=== PATIENT | male | born 1950 | race Caucasian/White ===

== ENCOUNTER 2019-04-24 11:38 | Inpatient (IN) | payer OTHER, MEDICARE ==
[~2019-04-24] VITALS: Ht 185.4 cm; Wt 90.7 kg
[2019-04-24] MEDS ORDERED: STATIN PO (12:23)
[2019-04-24] MEDS ORDERED: Zocor20 MG PO (12:25)
[2019-04-24] MEDS ORDERED: DEXILANT30 MG PO (12:25)
[2019-04-24 12:50] LABS: Calcium, Ionized (POC) 1.18 mmol/L (1.10-1.46); Chloride (POC) 101 mmol/L (98-108); Creatinine (POC) 0.9 mg/dL (0.8-1.3); Glucose (ISTAT POC) 141 mg/dL (70-99); Potassium (POC) 3.6 mmol/L (3.5-5.5); Sodium (POC) 139 mmol/L (135-148); Total CO2 (POC) 26 mmol/L (21-32)
[2019-04-24] MEDS ORDERED: THERA1 EACH PO (14:43)
--- NOTE | 2019-04-25 04:17 | NUR ---
SHIFT SUMMARY: PT A&O X4 T/O SHIFT. VS WNL. PAIN BEING MANAGED WITH 1 NORCO PER EMAR. O2 SATS STABLE ON RA. PT REPORTS CHEST PAIN TO LEFT SIDE R/T RIB FX'S. PT ENC TO USE INCENTIVE SPIROMETER. INDEPENDENT IN ROOM. VOIDING WELL. PLAN FOR FOLLOW UP CXR THIS MORNING.
[2019-04-25 04:25] LABS: BASOPHILS ABSOLUTE AUTO 0.02 K/mm3 (0.00-0.23); BASOPHILS PERCENT AUTO 0 % (0-2); EOSINOPHILS ABSOLUTE AUTO 0.05 K/mm3 (0.00-0.68); EOSINOPHILS PERCENT AUTO 1 % (0-6); Hematocrit 41.5 % (37.0-53.0); Hemoglobin 13.6 g/dL (13.5-17.5); IMMATURE GRAN ABSOLUTE AUTO 0.02 K/mm3 (0.00-0.10); IMMATURE GRAN PERCENT AUTO 0 % (0-1); LYMPHOCYTES ABSOLUTE AUTO 1.32 K/mm3 (0.84-5.20); LYMPHOCYTES PERCENT AUTO 19 % (21-46); MONOCYTES ABSOLUTE AUTO 0.68 K/mm3 (0.16-1.47); MONOCYTES PERCENT AUTO 10 % (4-13); Mean Corpuscular HGB 31.9 pg (26.0-34.0); Mean Corpuscular HGB Conc 32.8 g/dL (31.5-36.5); Mean Corpuscular Volume 97 fL (80-100); Mean Platelet Volume 9.5 fL (9.1-12.4); NEUTROPHILS ABSOLUTE AUTO 4.71 K/mm3 (1.96-9.15); NEUTROPHILS PERCENT AUTO 69 % (41-73); Platelet Count 148 K/mm3 (150-400); RDW Standard Deviation 46.2 fL (35.1-46.3); Red Blood Cell Count 4.26 M/mm3 (4.30-5.90)
[2019-04-25 04:46] LABS: Alanine Aminotransfer (ALT/SGP 38 U/L (12-78); Albumin, Blood 3.4 g/dL (3.4-5.0); Albumin/Globulin Ratio 1.1 (0.8-1.8); Alk Phos 74 U/L (50-136); Anion Gap 5 mmol/L (6-16); Aspartate Aminotrans (AST/SGOT 28 U/L (12-37); Bilirubin, Total 0.8 mg/dL (0.1-1.0); Blood Urea Nitrogen 18 mg/dL (8-24); Bun/Creatinine Ratio 19.3 (12.0-20.0); CO2, Blood 29 mmol/L (21-32); Calcium, Blood 8.4 mg/dL (8.5-10.1); Chloride, Blood 106 mmol/L (98-108); Creatinine, Blood 0.94 mg/dL (0.60-1.20); Globulin, Blood 3.1 g/dL (2.2-4.0); Glomerular Filtration Rate >60 (60-); Glucose, Blood 108 mg/dL (70-99); Potassium, Blood 3.9 mmol/L (3.5-5.5); Sodium, Blood 140 mmol/L (136-145); Total Protein, Blood 6.5 g/dL (6.4-8.2)
--- NOTE | 2019-04-25 16:13 | NUR ---
PT TOLERATED SEDTION WELL. MAINTAINED OWN AIRWAY, RT AT BEDSIDE T/O. TIME OUT PERFORMED AT 1531. SEE PAPER CHART
--- NOTE | 2019-04-25 18:11 | NUR ---
SHIFT SUMMARY PT A&OX4, VSS, ON RA, S/P CHEST TUBE PLACED AT BEDSIDE TO WALL SUCTION. PAIN MANAGED W/ 5 MG NORCO. PRADEEP PO, DENIES N&V. VOIDING WELL, URINAL AT BEDSIDE. WILL REPORT TO ONCOMING NOC RN.
--- NOTE | 2019-04-26 04:44 | NUR ---
SHIFT SUMMARY: TARIQ IS HERE AFTER EXPERIENCING A FALL FROM A LADDER RESULTING IN MULTIPLE RIB AND LUMBAR FXs. HE IS A&OX4. CHEST TUBE PLACED YESTERDAY AT BEDSIDE IS PATENT, BUBBLING GENTLY. HE HAS MULTIPLE QUESTIONS ABOUT EVERY ASPECT OF HIS CARE. SCDs IN PLACE. OXYGEN MAINTAINING ON 2 L VIA NC. TOLERATING PO INTAKE WELL. HE IS USING THE URINAL WITHOUT ANY DIFFICULTIES. HE STATES THAT HIS PAIN IS WELL CONTROLLED WITH THE USE OF THE NORCO, TORADOL AND ICE PACK. HE IS ABLE TO MAKE HIS NEEDS KNOWN. HE IS LYING IN BED WITH HIS CALL LIGHT IN REACH.
--- NOTE | 2019-04-26 15:37 | NUR ---
SHIFT SUMMARY PT A&OX4, VSS, S/P CHEST TUBE INSERTION, DRAINING TO GRAVITY. PAIN MANAGED W/ 5 MG NORCO AND TORADOL. PRADEEP PO, DENIES N&V. VOIDING WELL. AMB SBA TO [facility] AND [facility]. WILL REPORT TO ONCOMING VICTORIA RN.
--- NOTE | 2019-04-27 05:08 | NUR ---
CHEST TUBE CLAMPED AT 0503. VSS. PT DENIES ANY SOB. LCTAB. PT ENCOURAGED TO NOTIFY STAFF IMMEDIATELY IF HE EXPERIENES ANY CHANGE IN CONDITION.
--- NOTE | 2019-04-27 05:43 | NUR ---
TARIQ DENIES ANY CHEST PAIN, SOB, OR DIFFICULTY BREATHING. HIS OXYGEN SATURATION IS MAINTAINING AT 95% ON ROOM AIR. HE DENIES ANY INCREASED PAIN.
--- NOTE | 2019-04-27 05:45 | NUR ---
SHIFT SUMMARY: TARIQ IS A&OX4. HE DENIES ANY CHEST PAIN, SOB OR DIFFICULTY BREATHING AFTER THE CHEST TUBE WAS CLAMPED AT 0503 THIS MORNING. PLAN IS FOR CHEST X-RAY AT APPROX 0800. HE IS TOLERATING PO INTAKE WELL, RESTED COMFORTABLY FOR MOST OF THE NIGHT. HE IS USING HIS URINAL WITHOUT DIFFICULTIES. INSERTION SITE C,D&I, NO CREPITUS NOTED. LCTAB. PAS IN PLACE. HE IS ABLE TO MAKE HIS NEEDS KNOWN. HE IS LYING IN BED WITH HIS CALL LIGHT IN REACH.
--- NOTE | 2019-04-27 10:10 | NUR ---
assumed care of pt, recvd report from previous TAYLA Villar. Pt a/o x 4, pleasant/cooperative, ambulating in hallway
--- NOTE | 2019-04-27 12:14 | NUR ---
PT TRANSPORTED TO IMAGING
--- NOTE | 2019-04-27 14:13 | NUR ---
provided pt with discharge instructions, peripheral IV removed WNL, pt refused to wait for written prescription for pain medications, states he will return to the surgery center tomorrow for prescription. This RN will notify Dr. Chamberlain. pt states his understanding of instructions, provided with printed material/education. Pt states he packed his incentive spirometer for home use per [place] instructions. pt refused offer of wheelchair escort to awaiting vehicle, preferred to carry his own belonging to vehicle. pt's will drive him home.
[2019-04-28] MEDS ORDERED: Norco 5-325 Ta1 EACH PO (13:21)
== END 2019-04-27 14:10 | disposition home or self-care (01) | DRG 200 ==
LOC: ER 11:38 → SURS 11:39
PROVIDERS: Physician Assistant; ADMIT Surgery
PROC: 0W9B00Z Drainage of Left Pleural Cavity with Drainage Device, Open Approach (ICD-10-PCS; principal; 2019-04-25)
DX: S27.0XXA Traumatic pneumothorax, initial encounter (principal); S22.42XA Multiple fractures of ribs, left side, initial encounter for closed fracture; S32.019A Unspecified fracture of first lumbar vertebra, initial encounter for closed fracture; S32.029A Unspecified fracture of second lumbar vertebra, initial encounter for closed fracture; S32.039A Unspecified fracture of third lumbar vertebra, initial encounter for closed fracture; S32.049A Unspecified fracture of fourth lumbar vertebra, initial encounter for closed fracture; W11.XXXA Fall on and from ladder, initial encounter; Y93.9 Activity, unspecified; Y92.9 Unspecified place or not applicable; Y99.9 Unspecified external cause status; K21.9 Gastro-esophageal reflux disease without esophagitis
CPT/HCPCS: 36415; 71045; 71046; 71260; 74177; 80047; 80053; 85014; 85025; 94762; 99285-25; A9270-GY; G0378; J1885; J2250; J2310; J3010; J7120; Q9967

== ENCOUNTER 2023-07-02 22:20 | Emergency (ER) | payer OTHER ==
[~2023-07-02] VITALS: Ht 185.4 cm; Wt 90.7 kg
[~2023-07-02 22:20] MED LIST: DEXILANT30 MG PO; Norco 5-325 Ta1 EACH PO; STATIN PO; THERA1 EACH PO; Zocor20 MG PO
[2023-07-02 22:38] LABS: BASOPHILS ABSOLUTE AUTO 0.02 K/mm3 (0.00-0.23); BASOPHILS PERCENT AUTO 0 % (0-2); EOSINOPHILS ABSOLUTE AUTO 0.06 K/mm3 (0.00-0.68); EOSINOPHILS PERCENT AUTO 1 % (0-6); Hemoglobin 14.9 g/dL (13.5-17.5); IMMATURE GRAN ABSOLUTE AUTO 0.02 K/mm3 (0.00-0.10); IMMATURE GRAN PERCENT AUTO 0 % (0-1); LYMPHOCYTES ABSOLUTE AUTO 1.86 K/mm3 (0.84-5.20); LYMPHOCYTES PERCENT AUTO 24 % (21-46); MONOCYTES ABSOLUTE AUTO 0.39 K/mm3 (0.16-1.47); MONOCYTES PERCENT AUTO 5 % (4-13); Mean Corpuscular HGB 30.8 pg (26.0-34.0); Mean Corpuscular HGB Conc 33.1 g/dL (31.5-36.5); Mean Corpuscular Volume 93 fL (80-100); Mean Platelet Volume 9.2 fL (9.1-12.4); NEUTROPHILS ABSOLUTE AUTO 5.39 K/mm3 (1.96-9.15); NEUTROPHILS PERCENT AUTO 70 % (41-73); Platelet Count 160 K/mm3 (150-400); RDW Standard Deviation 44.6 fL (35.1-46.3); Red Blood Cell Count 4.83 M/mm3 (4.30-5.90); White Blood Cell Count 7.74 K/mm3 (4.00-11.30)
[2023-07-02 22:55] LABS: International Normalized Ratio 0.94; Prothrombin Time Results 9.9 Sec (9.7-11.5)
[2023-07-02] MEDS ORDERED: FOSAMAX70 MG PO (23:23)
[2023-07-03 00:08] VITALS: BP 136/80
== END 2023-07-03 00:35 | disposition home or self-care (01) ==
LOC: ER 22:20
PROVIDERS: Emergency Medicine
DX: S01.01XA Laceration without foreign body of scalp, initial encounter (principal); W01.0XXA Fall on same level from slipping, tripping and stumbling without subsequent striking against object, initial encounter; F10.129 Alcohol abuse with intoxication, unspecified; Z23 Encounter for immunization; Z79.899 Other long term (current) drug therapy; Z87.891 Personal history of nicotine dependence
CPT/HCPCS: 12002; 70450; 71045; 72125; 83605; 85025; 85610; 85730; 90471; 90714; 93005; 93010; 96360-59; 99285-25; J7030